=== PATIENT | female | born 1975 | race Caucasian/White ===

== ENCOUNTER 2016-11-03 22:20 | Observation (INO) | payer OTHER ==
[2016-11-03] MEDS ORDERED: SODIUM CHLORIDE 0.9% 1,000 ML IV STA (22:35)
[2016-11-03] MEDS ORDERED: ACETAMINOPHEN TAB 325 MG TAB PO STA (22:35)
[2016-11-03] MEDS ORDERED: METOCLOPRAMIDE 5 MG/ML 2 ML VIAL IVP STA (22:43)
[2016-11-03] MEDS ORDERED: diphenhydrAMINE 50 MG/ML 1 ML VIAL IVP STA (22:43)
[2016-11-03] MEDS ORDERED: HYDROmorphone 1 MG/ML 1 ML SYRINGE IVP STA (22:43)
[2016-11-03] MEDS ORDERED: SODIUM CHLORIDE 0.9% 1,000 ML IV ONE (22:44)
[2016-11-03] MEDS ORDERED: SODIUM CHLORIDE 0.9% 1,000 ML IV SCH (22:45)
[2016-11-03 23:14] LABS: Basophils % (A) 0 %; CH 30.9; CHCM 35.1; Eosinophils # (A) 0.1 k/uL (0-0.7); Eosinophils % (A) 2 %; HCT 45.6 % (34.0-46.0); HDW 2.72; HGB 15.9 gm/dL (11.4-16.0); Luc # (Auto) 0.18; Luc % (Auto) 2; Lymphocytes # (A) 2.2 k/uL (1.0-4.8); Lymphocytes % (A) 26 %; MCH 30.9 pg (25.0-35.0); MCHC 34.9 g/dL (31.0-37.0); MCV 88.3 fL (80.0-100.0); Mean Platelet Volume 6.9; Monocytes # (A) 0.5 k/uL (0-1.0); Monocytes % (A) 6 %; Neutrophils # (A) 5.4 k/uL (1.3-7.7); Neutrophils % (A) 64 %; RBC 5.16 m/uL (3.80-5.40); RDW 13.6 % (11.5-15.5); WBC 8.3 k/uL (3.8-10.6); WBC (Perox) 7.75
[2016-11-03 23:24] LABS: ALT 70 U/L (9-52); AST 32 U/L (14-36); Alkaline Phosphatase 108 U/L (38-126); Anion Gap 16 mmol/L; Blood Urea Nitrogen 16 mg/dL (7-17); Calcium 10.3 mg/dL (8.4-10.2); Carbon Dioxide 22 mmol/L (22-30); Chloride 105 mmol/L (98-107); Glucose 108 mg/dL (74-99); Non-African American GFR(MDRD) >60 (>60 ml/min/1.73 sqM); Potassium 4.2 mmol/L (3.5-5.1); Sodium 143 mmol/L (137-145); Total Bilirubin 0.3 mg/dL (0.2-1.3); Total Protein 8.6 g/dL (6.3-8.2)
[2016-11-04 00:44] LABS: Amorphous Sediment,Urine Occasional /hpf; Appearance,Urine Turbid (Clear); Bacteria,Urine Many /hpf; Bilirubin,Urine Negative (Negative); Glucose,Urine (UA) Negative (Negative); Ketones,Urine Negative (Negative); Leukocyte Esterase,Urine Negative (Negative); Nitrite,Urine Negative (Negative); Particle Count 22770; Protein,Urine Trace (Negative); Specific Gravity,Urine 1.016 (1.001-1.035); Squamous Epithelial Cell,Urine 2 /hpf (0-4); UA Billing (MACRO vs. MICRO) MICRO; Urobilinogen,Urine <2.0 mg/dL (<2.0)
--- NOTE | 2016-11-04 00:48 | XR ---
EXAM: XR Chest, 2 Views CLINICAL HISTORY: Reason: fever TECHNIQUE: Frontal and lateral views of the chest. COMPARISON: No relevant prior studies available. FINDINGS: Lungs: Unremarkable. No consolidation. Pleural space: Unremarkable. No pneumothorax. Heart: Unremarkable. No cardiomegaly. Mediastinum: Unremarkable. Bones/joints: Unremarkable. IMPRESSION: Normal chest x-rays.
[2016-11-04] MEDS ORDERED: ONDANSETRON 4 MG/2 ML VIAL IVP STA (00:58)
[2016-11-04] MEDS ORDERED: KETOROLAC 30 MG/ML 1 ML VIAL IVP STA (00:58)
[2016-11-04] MEDS ORDERED: HYDROmorphone 1 MG/ML 1 ML SYRINGE IVP STA (00:58)
[2016-11-04] MEDS ORDERED: ACETAMINOPHEN TAB 325 MG TAB PO PRN (01:25)
[2016-11-04] MEDS ORDERED: ONDANSETRON 4 MG/2 ML VIAL IVP PRN (01:25)
[2016-11-04] MEDS ORDERED: NALOXONE 0.4 MG/ML 1 ML VIAL IV PRN (01:25)
--- NOTE | 2016-11-04 01:59 | ED ---
General Adult HPI - General Chief complaint: Headache Stated complaint: migraine Time Seen by Provider: 11/03/16 22:35 Source: patient, RN notes reviewed Mode of arrival: ambulatory Limitations: no limitations - History of Present Illness Initial comments: 41-year-old female with history of migraine headache presents with a two-week history of occipital headache. Patient does report photophobia, no vision changes, no focal weakness. This is typical of her migraines. Patient was admitted to the hospital for several days with headache over the past week. She did return home, symptoms again presenting and are not relieved by outpatient therapy. She did have 3 episodes of nausea and vomiting prior to arrival, she has vomited twice in the emergency department. She also reports mild cough. Denies fever or chills, denies dysuria, denies diarrhea or abdominal pain. Denies chest pain or shortness of breath. - Related Data Home Medications Medication Instructions Recorded Confirmed Butalb/APAP/Caff 50-325-40Mg 1 tab PO Q4H PRN 11/03/16 11/03/16 [Fioricet 50-325-40] HYDROcodone/APAP 7.5-325MG [[place] 1 tab PO TID PRN 11/03/16 11/03/16 7.5-325] Ondansetron [Zofran ODT] 4 mg PO Q8HR PRN 11/03/16 11/03/16 Spironolactone 100 mg PO DAILY 11/03/16 11/03/16 Topiramate [Trokendi Xr] 50 mg PO QAM 11/03/16 11/03/16 amLODIPine [Norvasc] 2.5 mg PO DAILY 11/03/16 11/03/16 valACYclovir [Valtrex] 500 mg PO DAILY 11/03/16 11/03/16 Allergies Allergy/AdvReac Type Severity Reaction Status Date / Time No Known Allergies Allergy Verified 11/03/16 22:31 Review of Systems ROS Statement: Those systems with pertinent positive or pertinent negative responses have been documented in the HPI. ROS Other: All systems not noted in ROS Statement are negative. Past Medical History Past Medical History: No Reported History History of Any Multi-Drug Resistant Organisms: None Reported Past Surgical History: Appendectomy, Hysterectomy Additional Past Surgical History / Comment(s): knees. tummy tuck. ovarian cysts. Past Psychological History: No Psychological Hx Reported Smoking Status: Never smoker Past Alcohol Use History: None Reported Past Drug Use History: None Reported General Exam Limitations: no limitations General appearance: alert, in no apparent distress Head exam: Present: atraumatic, normocephalic Eye exam: Present: normal appearance, PERRL, EOMI ENT exam: Present: normal exam, mucous membranes moist Neck exam: Present: normal inspection, full ROM. Absent: tenderness, meningismus Respiratory exam: Present: normal lung sounds bilaterally, respiratory distress. Absent: wheezes Cardiovascular Exam: Present: normal rhythm, tachycardia GI/Abdominal exam: Present: soft. Absent: distended, tenderness, guarding Extremities exam: Present: normal inspection, full ROM, normal capillary refill. Absent: pedal edema Back exam: Present: normal inspection. Absent: CVA tenderness (R), CVA tenderness (L) Neurological exam: Present: alert, oriented X3, CN II-XII intact. Absent: motor sensory deficit Psychiatric exam: Present: normal affect, normal mood Skin exam: Present: warm, dry. Absent: rash, cyanosis, diaphoretic Course Vital Signs 11/03/16 11/03/16 11/03/16 22:27 23:22 23:53 Temperature 100.8 F H 100.3 F H 99.3 F Pulse Rate 140 H 138 H 108 H Respiratory 20 18 18 Rate Blood Pressure 159/96 157/93 136/88 O2 Sat by Pulse 99 99 99 Oximetry 11/04/16 01:36 Temperature 98.4 F Pulse Rate 110 H Respiratory 18 Rate Blood Pressure 141/80 O2 Sat by Pulse 99 Oximetry - Reevaluation(s) Reevaluation #1: 11/04/16 01:57 I reevaluation, the patient continues to have headache and nausea and vomiting Medical Decision Making - Medical Decision Making 41-year-old female presenting with a two-week history of headache. Headache is typical of her migraines patient was evaluated at outside hospital and admitted with these symptoms. She had tried taking her oral medication at home with minimal relief. Patient did report mild cough, chest x-ray was obtained negative for pneumonia. Laboratory studies reveal normal white blood cell count , electrolytes unremarkable, urinalysis shows no signs of infection. The patient is given multiple doses of antiemetics and pain medication the emergency department with relief. She will be admitted for symptomatically treatment of her headache and neurology evaluation. Diagnosis: Headache, intractable nausea vomiting - Lab Data Result diagrams: 11/03/16 23:05 11/03/16 23:05 Lab Results 11/03/16 11/03/16 11/03/16 Range/Units 23:05 23:05 23:05 WBC 8.3 (3.8-10.6) k/uL RBC 5.16 (3.80-5.40) m/uL Hgb 15.9 (11.4-16.0) gm/dL Hct 45.6 (34.0-46.0) % MCV 88.3 (80.0-100.0) fL MCH 30.9 (25.0-35.0) pg MCHC 34.9 (31.0-37.0) g/dL RDW 13.6 (11.5-15.5) % Plt Count 274 (150-450) k/uL Neutrophils % 64 % Lymphocytes % 26 % Monocytes % 6 % Eosinophils % 2 % Basophils % 0 % Neutrophils # 5.4 (1.3-7.7) k/uL Lymphocytes # 2.2 (1.0-4.8) k/uL Monocytes # 0.5 (0-1.0) k/uL Eosinophils # 0.1 (0-0.7) k/uL Basophils # 0.0 (0-0.2) k/uL Sodium 143 (137-145) mmol/L Potassium 4.2 (3.5-5.1) mmol/L Chloride 105 (98-107) mmol/L Carbon Dioxide 22 (22-30) mmol/L Anion Gap 16 mmol/L BUN 16 (7-17) mg/dL Creatinine 0.80 (0.52-1.04) mg/dL Est GFR (MDRD) Af Amer >60 (>60 ml/min/1.73 sqM) Est GFR (MDRD) Non-Af >60 (>60 ml/min/1.73 sqM) Glucose 108 H (74-99) mg/dL Plasma Lactic Acid Kaleb 1.1 (0.7-2.0) mmol/L Calcium 10.3 H (8.4-10.2) mg/dL Total Bilirubin 0.3 (0.2-1.3) mg/dL AST 32 (14-36) U/L ALT 70 H (9-52) U/L Alkaline Phosphatase 108 (38-126) U/L Total Protein 8.6 H (6.3-8.2) g/dL Albumin 5.2 H (3.5-5.0) g/dL TSH (0.465-4.680) mIU/L Urine Color Urine Appearance (Clear) Urine pH (5.0-8.0) Ur Specific [place] (1.001-1.035) Urine Protein (Negative) Urine Glucose (UA) (Negative) Urine Ketones (Negative) Urine Blood (Negative) Urine Nitrite (Negative) Urine Bilirubin (Negative) Urine Urobilinogen (<2.0) mg/dL Ur Leukocyte Esterase (Negative) Ur Squamous Epith Cells (0-4) /hpf Amorphous Sediment (None) /hpf Urine Bacteria (None) /hpf Urine Yeast (Budding) (None) /hpf Urine HCG, Qual (Not Detectd) 11/03/16 11/04/16 11/04/16 Range/Units 23:05 00:30 00:30 WBC (3.8-10.6) k/uL RBC (3.80-5.40) m/uL Hgb (11.4-16.0) gm/dL Hct (34.0-46.0) % MCV (80.0-100.0) fL MCH (25.0-35.0) pg MCHC (31.0-37.0) g/dL RDW (11.5-15.5) % Plt Count (150-450) k/uL Neutrophils % % Lymphocytes % % Monocytes % % Eosinophils % % Basophils % % Neutrophils # (1.3-7.7) k/uL Lymphocytes # (1.0-4.8) k/uL Monocytes # (0-1.0) k/uL Eosinophils # (0-0.7) k/uL Basophils # (0-0.2) k/uL Sodium (137-145) mmol/L Potassium (3.5-5.1) mmol/L Chloride (98-107) mmol/L Carbon Dioxide (22-30) mmol/L Anion Gap mmol/L BUN (7-17) mg/dL Creatinine (0.52-1.04) mg/dL Est GFR (MDRD) Af Amer (>60 ml/min/1.73 sqM) Est GFR (MDRD) Non-Af (>60 ml/min/1.73 sqM) Glucose (74-99) mg/dL Plasma Lactic Acid Kaleb (0.7-2.0) mmol/L Calcium (8.4-10.2) mg/dL Total Bilirubin (0.2-1.3) mg/dL AST (14-36) U/L ALT (9-52) U/L Alkaline Phosphatase (38-126) U/L Total Protein (6.3-8.2) g/dL Albumin (3.5-5.0) g/dL TSH 3.430 (0.465-4.680) mIU/L Urine Color Yellow Urine Appearance Turbid H (Clear) Urine pH 8.0 (5.0-8.0) Ur Specific [place] 1.016 (1.001-1.035) Urine Protein Trace H (Negative) Urine Glucose (UA) Negative (Negative) Urine Ketones Negative (Negative) Urine Blood Negative (Negative) Urine Nitrite Negative (Negative) Urine Bilirubin Negative (Negative) Urine Urobilinogen <2.0 (<2.0) mg/dL Ur Leukocyte Esterase Negative (Negative) Ur Squamous Epith Cells 2 (0-4) /hpf Amorphous Sediment Occasional H (None) /hpf Urine Bacteria Many H (None) /hpf Urine Yeast (Budding) Moderate H (None) /hpf Urine HCG, Qual Not Detected (Not Detectd) Disposition Clinical Impression: Headache, Intractable migraine, Intractable nausea and vomiting Disposition: ADMITTED IP TO THIS [facility] Condition: Stable Referrals: Ji Nance MD [Primary Care Provider] - 1-2 days Decision to Admit Reason: Admit from EC Decision Date: 11/04/16 Decision Time: 01:20
[2016-11-04 03:02] VITALS: BMI 30.9
[2016-11-04] MEDS: HYDROmorphone 1 MG/ML 1 ML SYRINGE IV PRN ×3 (05:15→18:06)
[2016-11-04] MEDS: valACYclovir 500 MG TAB PO SCH (13:33)
[2016-11-04] MEDS: SPIRONOLACTONE 25 MG TAB PO SCH (13:33)
[2016-11-04] MEDS: TOPIRAMATE 25 MG TAB PO SCH ×2 (13:34→21:02)
[2016-11-04] MEDS: amLODIPine 2.5 MG TAB PO SCH (13:34)
[2016-11-04] MEDS: SODIUM CHLORIDE 0.9% 1,000 ML IV SCH (13:37)
--- NOTE | 2016-11-04 14:24 | HP ---
CHIEF COMPLAINT: A 41-year-old white female with 2-week history of occipital headache, migraine headache, unrelenting, was admitted once now she is admitted again. She is unable to take care of her house, being home or walk or ambulate or keep the lights on. She has tried everything, Fioricet, Imitrex, failed everything. She is admitted to the hospital and awaiting for neurology consult. HOME MEDICINES: 1. Norvasc for blood pressure 2.5 daily. 2. Trokendi XR 50 mg q.a.m. 3. Spironolactone 100 daily. 4. Zofran 4 mg q.8 hours p.r.n. 5. [place] 7.5/325 t.i.d. 6. Fioricet 1 q.4 hours p.r.n. ALLERGIES: No known drug allergies. REVIEW OF SYSTEMS: Fourteen point review of systems negative. PAST MEDICAL HISTORY: Obese, hypertension, ovarian cyst, polycystic ovarian disease. PHYSICAL EXAM: Her eyes are half closed. The lights are off. She is unable to focus. CARDIOVASCULAR: S1, S2. LUNGS: Transmitted upper airway sounds. HEMATOLOGY: Negative Homans. PSYCH: Fair mood affect. NEUROLOGIC: Alert and oriented x3. OPHTHALMOLOGIC: Pupils equal, round and reactive to light and accommodation. MUSCULOSKELETAL: Tenderness to palpation cervical spinal muscles. Temperature is T-max 100.3, T now is 99. Respiratory rate 18 to 20. Blood pressure is 130s to 150s over 80s to 90s. Pulse rate is 140s coming in, now it is 110. She has nausea and vomiting. Chest x-ray is negative for pneumonia. Normal white count, electrolytes. ASSESSMENT: 1. Occipital neuritis, acute migraine. 2. Normal lactic acid. 3. Normal calcium. Await Neurology for possible trigger point injections for headache, ( ) migraines and nausea and vomiting, possible viral syndrome maybe. Please see further orders on chart. Await Neurology consult. LANDYD
--- NOTE | 2016-11-04 19:09 | CT ---
EXAMINATION TYPE: CT brain wo con DATE OF EXAM: 11/04/2016 COMPARISON: 05/18/2011 INDICATION: Patient complains of headache. DLP: 891.2 mGycm, Automated exposure control for dose reduction was used. CONTRAST: None CT of the brain is performed utilizing 3 mm thick sections through the posterior fossa and 3 mm thick sections through the remaining calvarium. Study is performed within 24 hours of arrival to the hosp [facility]. No abnormal hyperdensity is present to suggest an acute intracranial hemorrhage. No mass lesion is evident. No acute infarcts are evident. Ventricles and sulci are appropriate for the patient age. Paranasal sinuses and mastoid air cells within the [id number] are clear. IMPRESSIONS: 1. Normal CT Brain
[2016-11-04] MEDS: PROMETHAZINE 25 MG TAB PO PRN (20:13)
--- NOTE | 2016-11-04 20:19 | P.CNNES ---
History of Present Illness Consult date: 11/04/16 Reason for Consult: Patient admitted with recurrent occipital headache pain. History of Present Illness: This patient is a 41-year-old female who is been admitted to hospital with intractable headaches. Patient states she is been symptomatic with headache pain since 10/17/2016. She has a history of migraine headaches for which she has been treated. Apparently she has had recurrent and severe headache pain despite taking her regular headache medications. She was admitted to [facility] about 2 weeks ago with similar complaints. Patient does have various medications that she has tried for her headaches. All of these have failed and she was admitted to the hospital. She was given some Dilaudid for pain management. She continues to have significant symptoms of nausea and vomiting. She has been started on Zofran. She was sent for a stat computed tomography scan of the brain today which was reviewed and came back normal. She does have a family history of cerebral aneurysm in her mother and grandmother. We have recommended that she should have a MRA of the [place] to rule out any possibility of cerebral aneurysm. She does complain and have history of occipital neuritis in the past. This does seem to definitely be flared up with her current headache symptoms. Due to the severity and recurrent nature of her headache she is now admitted and neurology has been consulted for further evaluation and recommendations. Review of Systems Constitutional: Denies chills, Denies fever Eyes: denies blurred vision, denies pain Ears, nose, mouth and throat: Denies headache, Denies sore throat Cardiovascular: Denies chest pain, Denies shortness of breath Respiratory: Denies cough Gastrointestinal: Denies abdominal pain, Denies diarrhea, Denies nausea, Denies vomiting Genitourinary: Denies dysuria, Denies hematuria Musculoskeletal: Denies myalgias Integumentary: Denies pruritus, Denies rash Neurological: Reports head injury, Reports headaches, Reports migraines, Reports paresthesias, Reports tingling, Denies numbness, Denies weakness Psychiatric: Denies anxiety, Denies depression Endocrine: Denies fatigue, Denies weight change Past Medical History Past Medical History: No Reported History Additional Past Medical History / Comment(s): migraines History of Any Multi-Drug Resistant Organisms: None Reported Past Surgical History: Appendectomy, Hysterectomy Additional Past Surgical History / Comment(s): knees. tummy tuck. ovarian cysts. Past Anesthesia/Blood Transfusion Reactions: No Reported Reaction Past Psychological History: Anxiety, Depression Smoking Status: Never smoker Past Alcohol Use History: None Reported Past Drug Use History: None Reported - Past Family History Mother Family Medical History: Cancer Father Family Medical History: Hypertension Medications and Allergies Home Medications Medication Instructions Recorded Confirmed Type Butalb/APAP/Caff 50-325-40Mg 1 tab PO Q4H PRN 11/03/16 11/03/16 History [Fioricet 50-325-40] HYDROcodone/APAP 7.5-325MG [[place] 1 tab PO TID PRN 11/03/16 11/03/16 History 7.5-325] Ondansetron [Zofran ODT] 4 mg PO Q8HR PRN 11/03/16 11/03/16 History Spironolactone 100 mg PO DAILY 11/03/16 11/04/16 History Topiramate [Trokendi Xr] 50 mg PO QAM 11/03/16 11/03/16 History amLODIPine [Norvasc] 2.5 mg PO DAILY 11/03/16 11/04/16 History valACYclovir [Valtrex] 500 mg PO DAILY 11/03/16 11/03/16 History Allergies Allergy/AdvReac Type Severity Reaction Status Date / Time No Known Allergies Allergy Verified 11/03/16 22:31 Physical Examination - Vital Signs Vital Signs: Vital Signs Temp Pulse Pulse Resp BP BP Pulse Ox 11/04/16 16:26 98 F 77 20 114/72 100 11/04/16 11:56 97.3 F L 103 H 18 136/81 99 11/04/16 07:00 97.4 F L 106 H 21 131/79 97 11/04/16 03:14 103 H 11/04/16 02:43 98.4 F 101 H 16 134/90 96 11/04/16 02:27 98.9 F 114 H 18 160/78 99 11/04/16 01:36 98.4 F 110 H 18 141/80 99 11/03/16 23:53 99.3 F 108 H 18 136/88 99 11/03/16 23:22 100.3 F H 138 H 18 157/93 99 11/03/16 22:27 100.8 F H 140 H 20 159/96 99 Intake and Output 11/04/16 11/04/16 11/04/16 06:59 14:59 22:59 Intake Total 60 Output Total 100 20 50 Balance -100 40 -50 Intake: Oral 60 Output: Urine 100 Emesis 20 50 Other: # Voids 1 Weight 79.379 kg - Constitutional General appearance: average body habitus, cooperative - EENT EENT: PERRL, mucous membranes moist - Respiratory Respiratory: lungs clear, normal breath sounds - Cardiovascular Cardiovascular: regular rate, normal S1, normal S2 Extremities: no peripheral edema bilaterally - Gastrointestinal Gastrointestinal: normoactive bowel sounds - Integumentary Integumentary: normal - Neurologic Detailed sensory examination: intact Reflex and gait examination: intact Reflexes: 1+: ankle, bicep, knee, tricep - Musculoskeletal Musculoskeletal: no pain - Psychiatric Psychiatric: mood/affect appropriate, cooperative Results - Laboratory Findings CBC and BMP: 11/03/16 23:05 11/03/16 23:05 Abnormal Lab Findings: Abnormal Labs 11/03/16 11/04/16 23:05 00:30 Glucose 108 H Calcium 10.3 H ALT 70 H Total Protein 8.6 H Albumin 5.2 H Urine Appearance Turbid H Urine Protein Trace H Amorphous Sediment Occasional H Urine Bacteria Many H Urine Yeast (Budding) Moderate H Assessment and Plan (1) Occipital neuritis Status: Acute Code(s): M54.81 - OCCIPITAL NEURALGIA (2) Family history of aneurysm of blood vessel of brain Status: Acute Code(s): Z82.49 - FAMILY HX OF ISCHEM HEART DIS AND OTH DIS OF [facility] (3) Intractable migraine Status: Acute Code(s): G43.919 - MIGRAINE, UNSP, INTRACTABLE, WITHOUT STATUS MIGRAINOSUS (4) Migraine headache Status: Acute Code(s): G43.909 - MIGRAINE, UNSP, NOT INTRACTABLE, WITHOUT STATUS MIGRAINOSUS Plan: This patient is a 41-year-old female was admitted to hospital with severe occipital headache pain. She was sent for a stat computed tomography scan of the brain which was completed today and came back normal with no evidence of acute stroke or hemorrhage. She has evidence on neurological examination bilateral occipital neuritis. We've recommended she undergo a occipital nerve block procedure through anesthesia. We would recommend a MRI/MRA of the brain to be done is there is a very strong family history of cerebral aneurysm. Her mother has cerebral aneurysm history. Patient does have significant occipital tenderness to palpation. We have recommended bilateral occipital nerve block procedure. She may continue with her other headache medications. We will await the results of her MRI and MRA of the brain and we'll give further recommendations at that time. Her overall prognosis at this time remains guarded. Time with Patient: Greater than 30
[2016-11-05] MEDS: SODIUM CHLORIDE 0.9% 1,000 ML IV SCH ×3 (02:22→23:15)
[2016-11-05 07:09] LABS: Basophils # (A) 0.1 k/uL (0-0.2); Basophils % (A) 1 %; CH 30.9; CHCM 33.6; Eosinophils # (A) 0.2 k/uL (0-0.7); Eosinophils % (A) 2 %; HCT 39.6 % (34.0-46.0); HDW 2.69; Luc # (Auto) 0.16; Luc % (Auto) 3; Lymphocytes # (A) 1.8 k/uL (1.0-4.8); Lymphocytes % (A) 29 %; MCH 30.2 pg (25.0-35.0); MCHC 32.7 g/dL (31.0-37.0); MCV 92.5 fL (80.0-100.0); Mean Platelet Volume 7.5; Monocytes # (A) 0.4 k/uL (0-1.0); Monocytes % (A) 7 %; Neutrophils # (A) 3.7 k/uL (1.3-7.7); Neutrophils % (A) 59 %; RBC 4.28 m/uL (3.80-5.40); RDW 14.1 % (11.5-15.5); WBC 6.3 k/uL (3.8-10.6); WBC (Perox) 6.43
[2016-11-05 07:19] LABS: HGB 12.9 gm/dL (11.4-16.0)
[2016-11-05 07:24] LABS: ALT 55 U/L (9-52); AST 22 U/L (14-36); Alkaline Phosphatase 80 U/L (38-126); Anion Gap 8 mmol/L; Blood Urea Nitrogen 8 mg/dL (7-17); Calcium 8.8 mg/dL (8.4-10.2); Carbon Dioxide 20 mmol/L (22-30); Chloride 112 mmol/L (98-107); Glucose 85 mg/dL (74-99); Non-African American GFR(MDRD) >60 (>60 ml/min/1.73 sqM); Potassium 3.9 mmol/L (3.5-5.1); Sodium 140 mmol/L (137-145); Total Bilirubin 0.4 mg/dL (0.2-1.3); Total Protein 6.5 g/dL (6.3-8.2)
[2016-11-05] MEDS ORDERED: IV FLUID CONTINUATION 1,000 ML IV ONE (08:35)
[2016-11-05] MEDS ORDERED: fentaNYL (PF) 50 MCG/ML 2 ML AMP IV ONE (08:39)
[2016-11-05] MEDS ORDERED: MIDAZOLAM 2 MG/2 ML VIAL IV ONE (08:39)
[2016-11-05] MEDS ORDERED: TRIAMCINOLONE ACETONIDE 40 MG/ML 1 ML VIAL INTRAARTIC ONE ×2 (08:40)
[2016-11-05] MEDS ORDERED: BUPIVACAINE (PF) 0.5% 30 ML VIAL MISCELLANE ONE (08:40)
[2016-11-05] MEDS: amLODIPine 2.5 MG TAB PO SCH (10:04)
[2016-11-05] MEDS: TOPIRAMATE 25 MG TAB PO SCH ×2 (10:04→21:03)
[2016-11-05] MEDS: SPIRONOLACTONE 25 MG TAB PO SCH (10:05)
[2016-11-05] MEDS: valACYclovir 500 MG TAB PO SCH (10:05)
[2016-11-05] MEDS: PROMETHAZINE 25 MG TAB PO PRN ×2 (10:12→19:35)
--- NOTE | 2016-11-05 10:45 | P.PCN ---
Date of Procedure: 11/05/16 Preoperative Diagnosis: Postoperative Diagnosis: Procedure(s) Performed: Pre-operative diagnosis: 1- Bilateral occipital neuralgea Post Operative Diagnosis 1- Bilateral occipital neuralgea Procedure: 1- Bilateral occipital nerve block ANESTHESIA: Conscious sedation with Versed.2 mg and fentanyl 100 micrograms EBL: Minimal PROCEDURE INDICATION: The patient with neck pain and headache secondary to occipital neuralgea unresponsive to conservative treatments. PROCEDURE DESCRIPTION / TECHNIQUE: The patient was seen and identified in the preoperative area. Risks, benefits, complications, and alternatives were discussed with the patient, the patient agreed to proceed with the procedure and signed the consent.. Vital signs remained stable throughout the procedure. Patient was taken to the OR and time out was completed. The patient was placed in the sitting position on the procedure table. A pillow was placed under the patients chest to increase the cervical interlaminar space. The cervical area and right occiptial area were prepped with alcohol swab. Critical pause was taken. Vital signs were closely monitored during the procedure. Conscious sedation was used during the procedure to decrease patients anxiety. The right occiptal ridge was palpated and was then accessed with a 25 G needle. Then after negative aspiration, 6 ml of the block solution containing 6 ml of PF Buvicaine 0.5% and Kenalog 40 mg was injected. Needle was withdrawn intact. Then the same procedure was repeated on the left side and related the left occipital nerve block, after negative aspiration 6 mL of the block solution containing ropivacaine 0.5% and 40 mg of Kenalog injected after negative aspiration Patient tolerated procedure well. No acute complications. Implants: Indications for Procedure: Operative Findings: Description of Procedure:
[2016-11-05] MEDS: HYDROcodone/APAP 7.5-325MG 1 EACH TAB PO PRN ×3 (11:40→23:16)
[2016-11-05] MEDS: BUTALB/APAP/CAFF 50-325-40MG TAB PO PRN (21:29)
--- NOTE | 2016-11-06 05:50 | PN ---
SUBJECTIVE: A 41-year-old white female admitted with bilateral occipital neuralgia. Underwent surgery today for a nerve block. Brain CT was negative. Vital signs stable, afebrile. CARDIOVASCULAR: S1, S2. LUNGS: Clear. GI: Soft. HEMATOLOGY: Negative Homans. ASSESSMENT: 1. Occipital neuralgia. 2. Unrelenting migraine. PLAN: Patient will be discharged home in the next 24 to 48 hours to follow up as an outpatient. She is greatly improved from physical standpoint. JANUARY
[2016-11-06] MEDS: valACYclovir 500 MG TAB PO SCH (08:24)
[2016-11-06] MEDS: TOPIRAMATE 25 MG TAB PO SCH ×2 (08:24→21:37)
[2016-11-06] MEDS: amLODIPine 2.5 MG TAB PO SCH (08:25)
[2016-11-06] MEDS: SPIRONOLACTONE 25 MG TAB PO SCH (08:25)
[2016-11-06] MEDS: HYDROcodone/APAP 7.5-325MG 1 EACH TAB PO PRN ×2 (08:28→16:02)
[2016-11-06] MEDS: PROMETHAZINE 25 MG TAB PO PRN (08:50)
--- NOTE | 2016-11-06 10:12 | MR ---
EXAMINATION TYPE: MR angio head wo con DATE OF EXAM: 11/06/2016 COMPARISON: MR brain same date, CT brain 11/04/2016 HISTORY: Headaches and family history of cerebral aneurysm TECHNIQUE: Time of flight images focusing on the [place] were performed without contrast. FINDINGS: The vertebral arteries are patent, the internal carotid arteries are patent. 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 A1 segment of the internal carotid artery on the right is atrophic. IMPRESSION: No significant abnormality is evident
--- NOTE | 2016-11-06 10:16 | MR ---
MR brain without contrast HISTORY: Headaches, family history aneurysm Multiplanar multisequence imaging of the brain and correlated to CT brain 11/04/2016 There is no restricted diffusion to suggest subacute ischemia. There are normal vascular flow voids. No hemorrhage or hydrocephalus. Brain signal is maintained. The orbits show symmetric appearance. Cer ebellopontine angles, corpus callosum, pituitary, cervical medullary junction are normal. IMPRESSION: No significant abnormality.
[2016-11-06] MEDS: BUTALB/APAP/CAFF 50-325-40MG TAB PO PRN ×3 (11:20→21:35)
[2016-11-06] MEDS: CYCLOBENZAPRINE 10 MG TAB PO SCH (21:18)
[2016-11-07] MEDS: HYDROcodone/APAP 7.5-325MG 1 EACH TAB PO PRN ×2 (00:27→07:58)
[2016-11-07] MEDS: SODIUM CHLORIDE 0.9% 1,000 ML IV SCH (02:41)
[2016-11-07 08:19] VITALS: PULSE 79; RESP 19; TEMP 98.1
[2016-11-07] MEDS: amLODIPine 2.5 MG TAB PO SCH (08:24)
[2016-11-07] MEDS: SPIRONOLACTONE 25 MG TAB PO SCH (08:24)
[2016-11-07] MEDS: CYCLOBENZAPRINE 10 MG TAB PO SCH (08:24)
[2016-11-07] MEDS: TOPIRAMATE 25 MG TAB PO SCH (08:25)
[2016-11-07] MEDS: valACYclovir 500 MG TAB PO SCH (08:25)
--- NOTE | 2016-11-07 08:53 | P.DS ---
Providers Date of admission: 11/04/16 01:25 Expected date of discharge: 11/07/16 Attending physician: Ji Nance Consults: 11/04/16 01:26 Consult Physician Urgent Consulting Provider: Forrest Contreras Consult Reason/Comments: Headache Do you want consulting provider notified?: Yes, Notify in am 11/05/16 07:00 Consult Anesthesia Routine Consulting Provider: Anesthesia,Services Consult Reason/Comments: bilateral occipital nerve blocks for occipital neuritis. Primary care physician: Ji Nance - Discharge Diagnosis(es) (1) Intractable migraine Present on admission, chronic, stable at this time Status: Chronic (2) Intractable nausea and vomiting Due to migraines, resolved at time of discharge Status: Resolved Hospital Course: This is a 41-year-old female who was admitted to the hospital 2016 with a two-week history of migraines and nausea and vomiting. Patient has history of migraine headaches and has tried multiple treatments including Fioricet, and Imitrex. Patient was unable to take care of her house, ambulate or keep any light on due to his making her headache worse. Patient was admitted and neurology was consulted. CT of the brain was completed and was unremarkable. MRI/MRA of the brain was completed on 11/04/2016 and no significant abnormality was evident. Patient underwent a occipital nerve block on 11/05/2016 by the anesthesia department and tolerated well without complications. Patient is feeling well and without complaints this morning. Vital signs have been stable. Laboratory data from 11/05/[address] Nance discussed discharge with patient and patient states she feels ready to be discharged this morning. Patient Condition at Discharge: Stable Plan - Discharge Summary New Discharge Prescriptions: New Cyclobenzaprine [Flexeril] 10 mg PO BID #30 tab Continue valACYclovir [Valtrex] 500 mg PO DAILY Spironolactone 100 mg PO DAILY Topiramate [Trokendi Xr] 50 mg PO QAM Ondansetron [Zofran ODT] 4 mg PO Q8HR PRN PRN Reason: Nausea And Vomiting HYDROcodone/APAP 7.5-325MG [[place] 7.5-325] 1 tab PO TID PRN PRN Reason: Pain amLODIPine [Norvasc] 2.5 mg PO DAILY Butalb/APAP/Caff 50-325-40Mg [Fioricet 50-325-40] 1 tab PO Q4H PRN PRN Reason: Migraine Headache Discharge Medication List Butalb/APAP/Caff 50-325-40Mg [Fioricet 50-325-40] 1 tab PO Q4H PRN 11/03/16 [ History] HYDROcodone/APAP 7.5-325MG [[place] 7.5-325] 1 tab PO TID PRN 11/03/16 [History] Ondansetron [Zofran ODT] 4 mg PO Q8HR PRN 11/03/16 [History] Spironolactone 100 mg PO DAILY 11/03/16 [History] Topiramate [Trokendi Xr] 50 mg PO QAM 11/03/16 [History] amLODIPine [Norvasc] 2.5 mg PO DAILY 11/03/16 [History] valACYclovir [Valtrex] 500 mg PO DAILY 11/03/16 [History] Cyclobenzaprine [Flexeril] 10 mg PO BID #30 tab 11/07/16 [Rx] Follow up Appointment(s)/Referral(s): Ji Nance MD [Primary Care Provider] - 1-2 days Forrest Contreras MD [STAFF PHYSICIAN] - 1 Week Discharge Disposition: HOME SELF-CARE
[2016-11-07 09:09] VITALS: BP 138/88
--- NOTE | 2016-11-07 18:52 | PN ---
SUBJECTIVE: This is a white female admitted with migraine occipital neuralgia, occipital neuritis, status post nerve blocks. She has tenderness to palpation around her cervical spinal muscles. CARDIOVASCULAR: S1, S2. LUNGS: Clear. GI: Soft. ( ) stable. ASSESSMENT: 1. Occipital neuralgia. 2. Acute cephalgia. Flexeril 5 mg b.i.d. will be given. ( ) in the next 24 to 48 hours. Possible discharge. MTDD
== END 2016-11-07 09:07 | disposition home or self-care (01) ==
LOC: EC 22:20 → INTOOBSV 11-04 01:25 → 6PED 11-04 01:25
PROVIDERS: ADMIT Family Medicine; ATTEND Family Medicine
DX: M54.81 Occipital neuralgia (principal); I10 Essential (primary) hypertension; G43.919 Migraine, unspecified, intractable, without status migrainosus; E28.2 Polycystic ovarian syndrome; E66.9 Obesity, unspecified; F32.9 Major depressive disorder, single episode, unspecified; F41.9 Anxiety disorder, unspecified; Z79.899 Other long term (current) drug therapy; Z82.49 Family history of ischemic heart disease and other diseases of the circulatory system
CPT/HCPCS: 96376 ×2; 96361; 96374; 96375 ×2; 99284; 36415; 64405; 80053 ×2; 84443; 83605; 85025 ×2; 81001; 81025; 87040; 87086; 71020; 70450; 70544; 70551; G0378 ×4; J2250; J1200; J3301; J2765; J2405; J3010; J1885; J1170 ×2

== ENCOUNTER → 2017-01-24 | Day surgery (SDC) | payer OTHER ==
[2017-01-02 15:31] VITALS: BMI 29.2
[~2017-01-24] MED LIST: IV FLUID CONTINUATION 1,000 ML IV ONE; LACTATED RINGERS 1,000 ML IV ONE; LIDOCAINE 1% 20 ML VIAL (10MG/ML) FOR IV START INTRADERMA ONE
[2017-01-24 10:24] VITALS: RESP 16; TEMP 97.4
--- NOTE | 2017-01-24 11:20 | P.PCN ---
Date of Procedure: 01/24/17 Procedure(s) Performed: Pre-operative diagnosis: 1- Bilateral occipital neuralgea Post Operative Diagnosis 1- Bilateral occipital neuralgea Procedure: 1- Bilateral occipital nerve block ANESTHESIA: Conscious sedation with Versed. 2 mg and fentanyl 50 micrograms EBL: Minimal PROCEDURE INDICATION: The patient with neck pain and headache secondary to occipital neuralgea unresponsive to conservative treatments. PROCEDURE DESCRIPTION / TECHNIQUE: The patient was seen and identified in the preoperative area. Risks, benefits, complications, and alternatives were discussed with the patient, the patient agreed to proceed with the procedure and signed the consent. IV was started. Vital signs remained stable throughout the procedure. Patient was taken to the OR and time out was completed. The patient was placed in the pron (sitting ) position on the procedure table. A pillow was placed under the patients chest to increase the cervical interlaminar space. The cervical area and right occiptial area were prepped with alcohol swab. Critical pause was taken. Vital signs were closely monitored during the procedure. Conscious sedation was used during the procedure to decrease patients anxiety. The right occiptal ridge was palpated and was then accessed with a 25 G needle. Then after negative aspiration, 6 ml of the block solution containing 6 ml of PF Buvicaine 0.75% and Kenalog 40 mg was injected. Needle was withdrawn intact. Then the same procedure was repeated on the left side and related the left occipital nerve block, after negative aspiration 6 mL of the block solution containing ropivacaine 0.75% and 40 mg of Kenalog injected after negative aspiration Patient tolerated procedure well. No acute complications.
[2017-01-24 12:06] VITALS: BP 148/90; PULSE 84
== END ==
LOC: ORPAIN 09:50
PROVIDERS: ATTEND Specialist
DX: M54.81 Occipital neuralgia (principal)
CPT/HCPCS: 64405; J2250; J3301; J3010; 99152

== ENCOUNTER → 2017-03-31 | Outpatient (CLI) | payer OTHER ==
--- NOTE | 2017-03-31 14:54 | MR ---
EXAMINATION TYPE: MR cervical spine wo con DATE OF EXAM: 03/31/2017 COMPARISON: NONE HISTORY: Headaches neck pain, previous MRI on PACS TECHNIQUE: Multiplanar, multisequence images of the cervical spine were acquired. C2-C3: No evidence for degenerative disc disease. No disc bulge/herniation or protrusion. No Canal stenosis. Foramina are patent bilaterally. C3-C4: No evidence for degenerative disc disease. No disc bulge/herniation or protrusion. No Canal stenosis. Foramina are patent bilaterally. C4-C5: No evidence for degenerative disc disease. No disc bulge/herniation or protrusion. No Canal stenosis. Some mild right-sided foraminal encroachment present due to lateral extension of endplate d isc complex.. C5-C6: No evidence for degenerative disc disease. Mild posterior disc bulge causes only slight anteri or mass effect on the thecal sac.. No Canal stenosis. Some mild extension of endplate disc complex c auses minimal left-sided foraminal encroachment.. C6-C7: No evidence for degenerative disc disease. Mild posterior broad-based disc bulge causes only s light anterior mass effect on the thecal sac. No Canal stenosis. Some minimal lateral extension of e ndplate disc complex causes slight right-sided foraminal encroachment.. C7-T1: No evidence for degenerative disc disease. No disc bulge/herniation or protrusion. No Canal stenosis. Foramina are patent bilaterally. Cervical segments are intact. There is normal alignment. Cervical spinal cord is of normal signal. Craniovertebral junction relationships are within normal limits. Cervical vertebral bodies show pre served height. Mild spondylosis minimal endplate marrow signal change noted. Thoracic scoliosis is guzman spected. IMPRESSION: Suspect a thoracic scoliosis. Mild foraminal encroachment, degenerative disc changes described.
== END | disposition home or self-care (01) ==
LOC: RADMRIMAIN 14:07
PROVIDERS: ATTEND Anesthesiology
DX: M50.222 Other cervical disc displacement at C5-C6 level (principal); M47.812 Spondylosis without myelopathy or radiculopathy, cervical region
CPT/HCPCS: 72141

== ENCOUNTER → 2017-04-05 | Outpatient (CLI) | payer OTHER ==
--- NOTE | 2017-04-05 14:31 | P.PN ---
Subjective Progress Note Date: 04/05/17 This is follow-up visit for this patient with a history of severe and chronic ache A" occipital neuralgia and cervicogenic headache, we have done occipital nerve block bilaterally 2 She had no benefit from the occipital nerve block, she continued to have severe and chronic headache increased with any neck movement and any activity, with occasional exacerbation ,Patients currently on [place] 7.5/325 every 6 hours, Flexeril 10 mg 3 times a day, Darvocet every 4 hours when necessary Patient denies any side effects of the medication, denies excessive drowsiness or sleepiness, denies suicidal ideation, and reports that the current pain medication is NOT helping to control her headache Patient denies any motor or sensory deficit , patient denies any fever or night sweats, denies any change in the bowel movements or urination Physical Examinations : 1-Constitutiona : Cooperative , not in acute distress . 2-HEENT : nech ; supple , no Lymphadenopathy , no Thyromegaly , normal thyroid size . eyes : no ptosis , no icterus, no photophobia . ENT : normal of hearing , normal oropharynx , no Thrush . 3- Respiratory : Chest clear to auscultations Bilaterally , no wheezing , no Rhonchi . 4- Cardiovascular : regular rate and rhythem , S1 , S2 , no S3 , no S4. 5- Gastrointestinal : abdomen soft no tenderness , bowel sounds positive all four quadrents , no organomegally . 6- Genitourinary : Defferred . 7- neurologic : Cranial nerve II to XII intact , no focal neurological deffecit . 8-psychatric : alert , oriented X 3 , appropriate affect , intact judgment and insight . 9-Lymphatic : no Lymphadenopathy . 10- musculoskeltal : exams of the cervical spine = motor strength normal bilateral upper extremities facet loading test cervical area positive. Tenderness over the occipital nerves bilaterally exams of the [place] spine = motor strength lower extremities ,thigh and legs .5/5 Assessment and plan = Occipital neuralgia , cervicogenic headache Patient had no benefit from occipital nerve block x2 . MRI of the cervical spine reviewed and it showed that ,she had, no herniated disc ,and no foramina stenosis Patient should continue her pain medication [place] 7.5/325 every 6 hours and should continue Fioricet every 4 hours when necessary, she is getting prescription from primary care Prescription for Lyrica 25 mg 3 times a day given a prescription for Motrin 800 mg every 8 hours when necessary for headache also given Patient will be scheduled diagnostic medial branch block cervical C2 3/ C3 4/30 occipital nerve block bilaterally , and if she had benefits from stand still then we will do a radiofrequency ablation Objective - Vital Signs Vital signs: Intake & Output 04/04/17 04/05/17 04/05/17 18:59 06:59 18:59 Weight 74.843 kg
== END | disposition home or self-care (01) ==
LOC: PNWHC3 13:33
PROVIDERS: ATTEND Specialist
DX: M54.81 Occipital neuralgia (principal); Z79.899 Other long term (current) drug therapy; Z79.1 Long term (current) use of non-steroidal anti-inflammatories (NSAID)
CPT/HCPCS: 99211

== ENCOUNTER 2017-05-31 07:29 | Day surgery (SDC) | payer OTHER ==
[2017-04-30 13:21] VITALS: BMI 28.7
[2017-05-31 08:15] VITALS: BP 139/83; PULSE 91; RESP 16; TEMP 98
[2017-05-31] MEDS ORDERED: LACTATED RINGERS 1,000 ML IV ONE (08:25)
[2017-05-31] MEDS ORDERED: LIDOCAINE 1% 20 ML VIAL (10MG/ML) FOR IV START INTRADERMA ONE (08:26)
--- NOTE | 2017-05-31 09:02 | P.PN ---
Progress Note - Text Progress Note Date: 05/31/17 Patient incorrectly scheduled for occipital nerve block (which previously gave her no relief) instead of cervical medial branch block C2-C3, C3-C4, and third occipital NB. Insurance will require prior authorization, so procedure will be postponed until approved. Patient verbalized understanding.
== END 2017-05-31 09:01 | disposition home or self-care (01) ==
LOC: ORPAIN 07:29
PROVIDERS: ATTEND Anesthesiology
DX: M54.81 Occipital neuralgia (principal); Z53.9 Procedure and treatment not carried out, unspecified reason

== ENCOUNTER 2017-07-02 06:30 | Day surgery (SDC) | payer OTHER ==
[2017-06-26 09:11] VITALS: BMI 28.7
[~2017-07-02 06:30] MED LIST changes: -IV FLUID CONTINUATION 1,000 ML IV ONE; -LACTATED RINGERS 1,000 ML IV ONE; +LACTATED RINGERS 1,000 ML IV SCH; -LIDOCAINE 1% 20 ML VIAL (10MG/ML) FOR IV START INTRADERMA ONE
[2017-07-02] MEDS ORDERED: LIDOCAINE 1% 20 ML VIAL (10MG/ML) FOR IV START INTRADERMA ONE (07:26)
[2017-07-02 07:32] VITALS: RESP 16; TEMP 98.1
[2017-07-02] MEDS ORDERED: IV FLUID CONTINUATION 1,000 ML IV ONE (08:15)
[2017-07-02 08:38] VITALS: BP 111/75; PULSE 78
--- NOTE | 2017-07-02 08:42 | FL ---
EXAMINATION TYPE: FL guided pain mgmt statistic DATE OF EXAM: 07/02/2017 FLUOROSCOPY Fluoroscopy time of 8 seconds was used during bilateral cervical facet injections. 6 image/s documen t/s the procedure.
--- NOTE | 2017-07-02 10:58 | P.PCN ---
Date of Procedure: 07/02/17 Surgeon: Adriel Stevenson Pathology: none sent Condition: stable Disposition: PACU Description of Procedure: PREOPERATIVE DIAGNOSIS: Cervical spondylosis without myelopathy, cervicogenic headache. POSTOPERATIVE DIAGNOSIS: same PROCEDURES: Diagnostic bilateral C2-C3, C3-C4 medial branch and third occipital nerve block with fluoroscopic guidance ANESTHESIA: Local with 1% lidocaine; conscious sedation EBL: Minimal PROCEDURE INDICATION: This is a patient with neck pain and headaches secondary to cervical arthropathy unresponsive to more conservative treatments. PROCEDURE DESCRIPTION / TECHNIQUE: The patient was seen and identified in the preoperative area. Risks, benefits, complications, and alternatives were discussed with the patient (including but not limited to incomplete pain relief , bleeding, infection, nerve damage, and allergies to medications), the patient agreed to proceed with the procedure and signed the consent after all questions were answered. IV was started. Vital signs remained stable throughout the procedure. Patient was taken to the OR and time out was completed. The patient was placed in the prone position on the procedure table. A pillow was placed under the patients chest to increase the cervical interlaminar space. The cervical area was prepped and draped in the usual sterile fashion. Critical pause was taken. Vital signs were closely monitored during the procedure. Conscious sedation was used during the procedure to decrease patients anxiety. Using cross-table lateral fluoroscopy, the centroid of the trapezoid of right C2 , was identified, marked, and localized with 1% lidocaine. Subsequently, a 22- gauge 3.5-inch spinal needle was advanced guided by fluoroscopy to the centroid of the trapezoid of C2. Needle tip position was confirmed at the centroid of the trapezoids of C2 with anteroposterior fluoroscopy. Subsequently, 1 ml of a combination of 10 mg Decadron and 5 ml of preservative-free Bupivacaine 0.5% was injected after negative aspiration for blood and CSF. Needle was then removed intact; the same procedure was repeated at the right C3 MB and C2-C3 facet joint levels and then at the corresponding three levels on the left side. COMPLICATIONS: No acute complications. COMMENTS: DISPOSITION / PLANS: The patient was placed in a supine position and transferred to the recovery area in a stable condition for observation and was discharged from the recovery room after meeting discharge criteria. Home discharge instructions given to the patient by the staff. The patient was reexamined prior to discharge and there were no issues. The patient will schedule a repeat CMBB/TON block in 3-4 weeks.
== END 2017-07-02 08:46 | disposition home or self-care (01) ==
LOC: ORPAIN 06:30
PROVIDERS: ATTEND Anesthesiology
DX: G89.29 Other chronic pain (principal); M47.812 Spondylosis without myelopathy or radiculopathy, cervical region; I10 Essential (primary) hypertension; Z79.1 Long term (current) use of non-steroidal anti-inflammatories (NSAID); Z79.891 Long term (current) use of opiate analgesic; Z79.899 Other long term (current) drug therapy
CPT/HCPCS: 64490; 64491; 64492; J2250; J1100; 99152

== ENCOUNTER 2017-08-02 05:57 | Day surgery (SDC) | payer OTHER ==
[2017-07-31 09:29] VITALS: BMI 29.2
[2017-08-02] MEDS ORDERED: LACTATED RINGERS 1,000 ML IV ONE (06:54)
[2017-08-02] MEDS ORDERED: LIDOCAINE 1% 20 ML VIAL (10MG/ML) FOR IV START INTRADERMA ONE (06:54)
[2017-08-02 06:58] VITALS: TEMP 98
[2017-08-02 07:11] LABS: Glucose,Whole Blood 96 mg/dL (75-99)
--- NOTE | 2017-08-02 07:28 | P.PCN ---
Date of Procedure: 08/02/17 Surgeon: Ashish Garcia Description of Procedure: PREOPERATIVE DIAGNOSIS: Cervical Spondylosis with Facet Arthropathy.without myelopathy POSTOPERATIVE DIAGNOSIS: Cervical Spondylosis Facet Arthropathy. Without myelopathy PROCEDURES: Diagnostic , bilateral C2, bilateral C3, bilateral C4 medial branch blocks, with fluoroscopic guidance ANESTHESIA: Local with 1% lidocaine; IV sedation with Versed 3 mg. EBL: Minimal PROCEDURE INDICATION: The patient with neck pain secondary to cervical arthropathy unresponsive to more conservative treatments. He has undergone 2 previous occipital nerve blocks and received little benefit. She is undergone one previous diagnostic cervical medial branch nerve block. She reports that this was helpful in reducing of the daily headaches. She no longer experiences the symptoms are severe she previously did. PROCEDURE DESCRIPTION / TECHNIQUE: The patient was seen and identified in the preoperative area. Risks, benefits, complications, and alternatives were discussed with the patient, the patient agreed to proceed with the procedure and signed the consent. IV was started. Vital signs remained stable throughout the procedure. Patient was taken to the OR and time out was completed. The patient was placed in the prone position on the procedure table. A pillow was placed under the patients chest to increase the cervical interlaminar space. The cervical area was prepped and draped in the usual sterile fashion. Critical pause was taken. Vital signs were closely monitored during the procedure. Conscious sedation was used during the procedure to decrease patients anxiety. Using cross-table lateral fluoroscopy, the centroid of the trapezoid of right C2 was identified, marked, and localized with 1% lidocaine 1 ml at each level for skin and Sub Q infiltrations . Subsequently, a 22 G spinal needle was advanced guided by fluoroscopy to the centroid of the trapezoid . [place] tip position was confirmed at the centroid of the trapezoids anteroposterior fluoroscopy. Subsequently, 2 ml of preservative-free Bupivacaine 0.5% mixed with Dexamethasone 10 mg and half ml of the mixture was injected after negative aspiration for blood and CSF. This was then repeated at all the additional levels on both sides. COMPLICATIONS: No acute complications. COMMENTS: DISPOSITION / PLANS: The patient was placed in a supine position and transferred to the recovery area in a stable condition for observation and was discharged from the recovery room after meeting discharge criteria. Home discharge instructions given to the patient by the staff. The patient was reexamined prior to discharge. She can follow up for repeat of this procedure in 2-4 weeks. She should receive at least 50% benefit from this procedure to consider radiofrequency ablation.
[2017-08-02 07:46] VITALS: BP 118/80; PULSE 78; RESP 18
--- NOTE | 2017-08-02 07:53 | FL ---
EXAMINATION TYPE: FL guided pain mgmt statistic DATE OF EXAM: 08/02/2017 CLINICAL HISTORY: Neck pain. TECHNIQUE: Fluoroscopy. COMPARISON: None. FINDINGS: Fluoroscopic guidance was provided during pain relief procedure performed by anesthesia Dr . A total of 6 seconds of fluoroscopic time was utilized during the procedure and two spot images ar e acquired. Images acquired shows needle localization at several levels in the cervical spine. IMPRESSION: As Above.
[2017-08-02] MEDS ORDERED: IV FLUID CONTINUATION 1,000 ML IV ONE (07:55)
== END 2017-08-02 08:03 | disposition home or self-care (01) ==
LOC: ORPAIN 05:57
PROVIDERS: ATTEND Anesthesiology
DX: M47.812 Spondylosis without myelopathy or radiculopathy, cervical region (principal)
CPT/HCPCS: 64490; 64491; 64492; J2250; J1100; 99152

== ENCOUNTER → 2017-08-27 | Outpatient (CLI) | payer OTHER ==
[2017-08-27 13:59] VITALS: BP 121/82; PULSE 94; RESP 16
--- NOTE | 2017-08-27 14:30 | P.PN ---
Progress Note - Text Progress Note Date: 08/27/17 Patient returns for followup for chronic neck pain and headaches. The patient had cervical medial branch block for C2 and C3,and c4 bilaterally recently which gave her only 10% of pain relief. She failed to respond to occipital nerve block previously. Her most recent cervical spine MRI showed only very mild changes that does not explain her pain. Patient continues on [place] medications for pain with some relief. Patient denies adverse drug effects from medications. Today, pt denies new-onset weakness, bowel/bladder incontinence, or any other signs or symptoms of cauda equina syndrome. There are no signs of acute intoxication, and no indications of medication diversion or overuse. In addition to above, 13-point review of systems is also negative for chest pain , shortness of breath, changes in vision, changes in hearing, new onset weakness , abdominal pain, diarrhea, extreme fatigue, malaise, fever, skin changes, homicidal or suicidal ideation, or bowel or bladder incontinence. Vital Signs: Reviewed in EMR Gen: WDWN, AAOx3, NAD HEENT: NCAT, EOMI, hearing grossly normal Pulm: resp unlabored Neck: supple, trachea midline Neuro: CN II-XII grossly intact, muscle strength lower extremities PRESERVED Imaging: Reviewed in EMR Assessment: 1. cervical spondylosis 2. cervical myofascial pain 3. chronic headache, possibly cervicogenic Plan: 1. Explanation: Opioid and psychological risk scores were reviewed. Diagnoses , prognoses, and multiple treatment options including but not limited to physical therapy, interventional therapies, adjuvant medical therapies, narcotic medication therapies, and surgery were discussed with the patient and all questions were answered to the patient's satisfaction. 2. Opioid agreement: no opioids prescribed today 3. Counseling: The patient was counseled extensively on BLOOD PRESSURE, BODY MASS INDEX, EXERCISE. Specifically, the patient was instructed regarding the importance of BP control with headaches, weight control, and exercise in the context of both chronic pain and overall health. 4. Procedures: The patient has unremarkable cervical spine MRI and she does not take any procedures on the cervical spine at this point. 5. Consultations: I will refer the patient for physical therapy 6. Investigations: MRI cervical spine was reviewed with the patient 7. Medications: none prescribed 8. Disposition: The patient will be seen on an as-needed basis PQRS measures: 1-Patient's medications are documented in the chart. 2-Tobacco use is /negative 3-Patient has not had a pneumococcal vaccine. 4-Advanced care planning discussed, patient unable to give. 5-Opioid contract NOT signed with the patient. 6-Pain positive, follow-up visit or procedure scheduled 7-Patient's blood pressure measured and documented, and patient will follow up with the primary care due to hypertension. 8-Patient's weight was measured, and body mass index ABOVE the normal limits, and counseling was done. Patient instructed to follow up with PCP. 9-Patient WAS NOT identified as an unhealthy alcohol user.
== END | disposition home or self-care (01) ==
LOC: PNWHC3 13:15
PROVIDERS: ATTEND Anesthesiology
DX: G89.29 Other chronic pain (principal); M54.2 Cervicalgia; M47.812 Spondylosis without myelopathy or radiculopathy, cervical region; M79.1 Myalgia; R51 Headache; Z79.891 Long term (current) use of opiate analgesic
CPT/HCPCS: 99211

== ENCOUNTER → 2017-12-20 | Outpatient (CLI) | payer OTHER ==
--- NOTE | 2017-12-20 15:49 | XR ---
EXAMINATION TYPE: XR knee complete LT DATE OF EXAM: 12/20/2017 COMPARISON: None HISTORY: Slip, knee pain TECHNIQUE: Three-view left knee FINDINGS: There is narrowing of the medial compartment joint space. Medial lateral tibial plateau and medial and lateral femoral condylar spurring is present. Posterior patellar spurring is present. No joint effusion is evident. No acute fractures are evident. Follow-up exam can be performed 7-10 days from acute trauma for continued pain. IMPRESSION: 1. Moderate degenerative changes. 2. No acute osseous abnormality.
== END | disposition home or self-care (01) ==
LOC: RADXRMAIN 14:30
PROVIDERS: ATTEND Family Medicine
DX: M17.12 Unilateral primary osteoarthritis, left knee (principal)

== ENCOUNTER → 2018-05-20 | Outpatient (CLI) | payer BC, OTHER ==
--- NOTE | 2018-05-20 11:21 | MM ---
Reason for exam: clinical finding. Last mammogram was performed 2 years and 7 months ago. History: Patient has history of other cancer at age 11. Family history of breast cancer in paternal grandmother and breast cancer in paternal aunt. Took hormonal contraceptives for 4 years beginning at age 15. Physical Findings: Nurse did not find any significant physical abnormalities on exam. MG Diagnostic Mammo w CAD JANUARY Bilateral CC and MLO view(s) were taken. Prior study comparison: October 11, 2015, bilateral MG diagnostic mammo w CAD JANUARY. October 08, 2014, bilateral MG screening mammo w CAD. The breast tissue is heterogeneously dense. This may lower the sensitivity of mammography. No suspicious abnormality. These results were verbally communicated with the patient and result sheet given to the patient on 05/20/18. ASSESSMENT: Incomplete: need additional imaging evaluation, BI-RAD 0 RECOMMENDATION: Ultrasound of the left breast. (area of pain)
--- NOTE | 2018-05-20 11:22 | USB ---
Reason for exam: additional evaluation requested from abnormal screening. History: Patient has history of other cancer at age 11. Family history of breast cancer in paternal grandmother and breast cancer in paternal aunt. Took hormonal contraceptives for 4 years beginning at age 15. US Breast Limited LT Left limited breast ultrasound including focal area of concern, retroareolar and axilla demonstrates a 0.6 x 0.4 x 0.4cm oval, cystic lesion at 3 o'clock, duct ectasia at 6 o'clock and posterior nipple. These results were verbally communicated with the patient and result sheet given to the patient on 05/20/18. ASSESSMENT: Benign, BI-RAD 2 RECOMMENDATION: Routine screening mammogram of both breasts in 1 year.
== END ==
LOC: RADMAMWWP 06:59
PROVIDERS: ATTEND Obstetrics & Gynecology
DX: R92.8 Other abnormal and inconclusive findings on diagnostic imaging of breast (principal); N64.4 Mastodynia
CPT/HCPCS: 77066

== ENCOUNTER → 2019-07-29 | Outpatient (CLI) | payer BC ==
[2019-07-29 10:48] LABS: Prothrombin Time 10.3 sec (9.0-12.0)
== END | disposition home or self-care (01) ==
LOC: LABWHC1 09:58
PROVIDERS: ATTEND Family Medicine
DX: I10 Essential (primary) hypertension (principal); Z79.899 Other long term (current) drug therapy
CPT/HCPCS: 36415; 84443; 85610

== ENCOUNTER → 2020-03-26 | Outpatient (CLI) | payer BC ==
--- NOTE | 2020-03-26 08:24 | US ---
EXAMINATION TYPE: US abdomen complete DATE OF EXAM: 03/26/2020 COMPARISON: CLINICAL HISTORY: R10.9 abdmonial pain. Generalized abdomen pain EXAM MEASUREMENTS: Liver Length: 14.0 cm Gallbladder Wall: 0.3 cm CBD: 0.5 cm Spleen measures 8.7 cm. Right Kidney: 9.2 x 4.4 x 4.1 cm Left Kidney: 8.9 x 4.7 x 5.3 cm Pancreas: wnl Liver: There is mild fatty infiltration liver Gallbladder: wnl Evidence for sonographic Reveles's sign: neg CBD: wnl Spleen: wnl Right Kidney: No hydronephrosis or masses seen Left Kidney: No hydronephrosis or masses seen Upper IVC: not well visualized Abd Aorta: No AAA visualized IMPRESSION: 1. Mild fatty liver
== END | disposition home or self-care (01) ==
LOC: RADUSWWP 07:03
PROVIDERS: ATTEND Obstetrics & Gynecology
DX: K76.0 Fatty (change of) liver, not elsewhere classified (principal)
CPT/HCPCS: 76700

== ENCOUNTER → 2020-07-02 | Outpatient (CLI) | payer BC ==
[2020-07-02 19:28] LABS: HGB 13.9 g/dL (12.0-15.0); MCH 28.9 pg (27.0-32.0); MCHC 31.6 g/dL (32.0-37.0); MCV 91.5 fL (80.0-97.0); Mean Platelet Volume 10.4 fL (9.5-12.2); Platelet Count 312 X 10*3/uL (140-440); RBC 4.81 X 10*6/uL (4.10-5.20); RDW 13.2 % (11.5-14.5); WBC 6.58 X 10*3/uL (4.50-10.00)
[2020-07-02 21:47] LABS: Hemoglobin A1C 5.5 % (4.0-6.0)
[2020-07-02 21:48] LABS: African American GFR (CKD) 89.5 (60.0-200.0); Albumin 5.1 g/dL (3.80-4.90); Albumin/Globulin Ratio 2.22 (1.60-3.17); Anion Gap 10.1 mmol/L (4.00-12.00); BUN/Creat Ratio 21.11 Ratio (12.00-20.00); Calcium 10.2 mg/dL (8.7-10.3); Carbon Dioxide 26.9 mmol/L (21.6-31.8); Chol/HDL Ratio 3.89; Globulin 2.3 g/dL (1.6-3.3); LDL Cholesterol,Calculated 107.6 mg/dL (0.0-131.0); Non-African American GFR(CKD) 77.2 (60.0-200.0); Potassium 4.3 mmol/L (3.5-5.5); Total Bilirubin 0.4 mg/dL (0.3-1.2); Total Protein 7.4 g/dL (6.2-8.2); VLDL Calculation 54.4 mg/dL (5.00-40.00)
[2020-07-03 01:24] LABS: C-Peptide 3.81 ng/mL (0.81-3.85)
== END | disposition home or self-care (01) ==
LOC: LABWHC1 09:43
PROVIDERS: ATTEND Family Medicine
DX: M19.90 Unspecified osteoarthritis, unspecified site (principal); R53.83 Other fatigue
CPT/HCPCS: 36415; 80053; 80061; 82306; 83036; 84443; 84681; 85027

== ENCOUNTER 2020-09-29 12:41 | Emergency (ER) | payer BC ==
[2020-09-29 12:51] VITALS: TEMP 98
[2020-09-29] MEDS ORDERED: SODIUM CHLORIDE 0.9% 500 ML 500 ML IV ONE (13:06)
[2020-09-29] MEDS ORDERED: SODIUM CHLORIDE 0.9% 1,000 ML IV ONE (13:06)
[2020-09-29] MEDS ORDERED: ONDANSETRON 4 MG/2 ML VIAL IVP STA (13:07)
--- NOTE | 2020-09-29 13:14 | ED ---
General Adult HPI - General Chief complaint: Recheck/Abnormal Lab/Rx Stated complaint: dehydration Time Seen by Provider: 09/29/20 12:50 Source: patient, RN notes reviewed, old records reviewed Mode of arrival: ambulatory Limitations: no limitations - History of Present Illness Initial comments: This is a 45-year-old female who presents to the emergency department complaining of fatigue nausea and vomiting. Patient states she was outside working in the hot heat for about 4 hours which she has not used 2 and when she was done she felt lightheaded extremely weak and vomited. Patient states she did not drink much water today at all. Patient denies any fever or chills patient denies any chest pain difficult breathing shortness of breath. Patient denies any abdominal pain patient denies any back pain. Patient denies any dysuria hematuria urinary frequency. - Related Data Home Medications Medication Instructions Recorded Confirmed Butalb/APAP/Caff 50-325-40Mg 1 tab PO Q4H PRN 11/03/16 08/27/17 [Fioricet 50-325-40] HYDROcodone/APAP 7.5-325MG [[place] 1 tab PO TID PRN 11/03/16 08/27/17 7.5-325] Spironolactone 100 mg PO DAILY 11/03/16 08/27/17 Topiramate [Trokendi Xr] 100 mg PO QAM 11/03/16 08/27/17 valACYclovir [Valtrex] 500 mg PO HS 11/03/16 08/27/17 Cyclobenzaprine [Flexeril] 10 mg PO TID 01/02/17 08/27/17 amLODIPine [Norvasc] 10 mg PO DAILY 03/07/17 08/27/17 Allergies Allergy/AdvReac Type Severity Reaction Status Date / Time No Known Allergies Allergy Verified 09/29/20 12:51 Review of Systems ROS Statement: Those systems with pertinent positive or pertinent negative responses have been documented in the HPI. ROS Other: All systems not noted in ROS Statement are negative. Past Medical History Past Medical History: Hypertension, Neurologic Disorder Additional Past Medical History / Comment(s): migraines,kidney stones, History of Any Multi-Drug Resistant Organisms: None Reported Past Surgical History: Appendectomy, Hysterectomy, Orthopedic Surgery Additional Past Surgical History / Comment(s): cyst removed from ovary, zenaida knee arthroscopy, PAIN CL[facility]IC Past Anesthesia/Blood Transfusion Reactions: No Reported Reaction Additional Past Anesthesia/Blood Transfusion Reaction / Comment(s): no hx blood transfusion Past Psychological History: Anxiety, Depression Smoking Status: Never smoker Past Alcohol Use History: None Reported Past Drug Use History: None Reported - Past Family History Mother Family Medical History: Cancer Father Family Medical History: Hypertension General Exam - General Exam Comments Initial Comments: GENERAL: Patient is well-developed and well-nourished. Patient is nontoxic and well- hydrated and is in mild distress. ENT: Neck is soft and supple. No significant lymphadenopathy is noted. Oropharynx is clear. Moist mucous membranes. Neck has full range of motion without eliciting any pain. EYES: The sclera were anicteric and conjunctiva were pink and moist. Extraocular movements were intact and pupils were equal round and reactive to light. Eyelids were unremarkable. PULMONARY: Unlabored respirations. Good breath sounds bilaterally. No audible rales rhonchi or wheezing was noted. CARDIOVASCULAR: There is a regular rate and rhythm without any murmurs gallops or rubs. ABDOMEN: Soft and nontender with normal bowel sounds. SKIN: Skin is clear with no lesions or rashes and otherwise unremarkable. NEUROLOGIC: Patient is alert and oriented x3. Cranial nerves II through XII are grossly intact. Motor and sensory are also intact. Normal speech, volume and content. Symmetrical smile. MUSCULOSKELETAL: Normal extremities with adequate strength and full range of motion. No lower extremity swelling or edema. No calf tenderness. LYMPHATICS: No significant lymphadenopathy is noted PSYCHIATRIC: Normal psychiatric evaluation. Limitations: no limitations Course Vital Signs 09/29/20 09/29/20 12:49 14:50 Temperature 98.0 F Pulse Rate 102 H 75 Respiratory 16 18 Rate Blood Pressure 137/83 133/84 O2 Sat by Pulse 97 100 Oximetry Medical Decision Making - Medical Decision Making Patient's EKG shows normal sinus rhythm at 87 bpm W[place] interval 262 QRS is 84 QT interval 374 QTC is 450. Patient's EKG shows no ST segment elevation or depression. I went back and reevaluate the patient she was feeling considerably better and wanted to be discharged home. Patient received a liter of fluids in the emergency department and Zofran. - Lab Data Result diagrams: 09/29/20 13:34 09/29/20 13:34 Lab Results 09/29/20 09/29/20 09/29/20 Range/Units 13:34 13:34 13:39 WBC 5.8 (3.8-10.6) k/uL RBC 4.43 (3.80-5.40) m/uL Hgb 13.3 (11.4-16.0) gm/dL Hct 38.0 (34.0-46.0) % MCV 85.9 (80.0-100.0) fL MCH 29.9 (25.0-35.0) pg MCHC 34.8 (31.0-37.0) g/dL RDW 13.6 (11.5-15.5) % Plt Count 229 (150-450) k/uL MPV 7.1 Neutrophils % 60 % Lymphocytes % 28 % Monocytes % 7 % Eosinophils % 3 % Basophils % 1 % Neutrophils # 3.5 (1.3-7.7) k/uL Lymphocytes # 1.6 (1.0-4.8) k/uL Monocytes # 0.4 (0-1.0) k/uL Eosinophils # 0.1 (0-0.7) k/uL Basophils # 0.0 (0-0.2) k/uL Sodium 143 (137-145) mmol/L Potassium 4.1 (3.5-5.1) mmol/L Chloride 106 (98-107) mmol/L Carbon Dioxide 26 (22-30) mmol/L Anion Gap 11 mmol/L BUN 16 (7-17) mg/dL Creatinine 1.00 (0.52-1.04) mg/dL Est GFR (CKD-EPI)AfAm 79 (>60 ml/min/1.73 sqM) Est GFR (CKD-EPI)NonAf 68 (>60 ml/min/1.73 sqM) Glucose 91 (74-99) mg/dL Calcium 10.0 (8.4-10.2) mg/dL Magnesium 2.0 (1.6-2.3) mg/dL Total Bilirubin 0.5 (0.2-1.3) mg/dL AST 25 (14-36) U/L ALT 27 (4-34) U/L Alkaline Phosphatase 100 (38-126) U/L Total Protein 7.5 (6.3-8.2) g/dL Albumin 4.7 (3.5-5.0) g/dL Urine Color Yellow Urine Appearance Cloudy H (Clear) Urine pH 5.5 (5.0-8.0) Ur Specific [place] 1.020 (1.001-1.035) Urine Protein Negative (Negative) Urine Glucose (UA) Negative (Negative) Urine Ketones Negative (Negative) Urine Blood Negative (Negative) Urine Nitrite Negative (Negative) Urine Bilirubin Negative (Negative) Urine Urobilinogen <2.0 (<2.0) mg/dL Ur Leukocyte Esterase Negative (Negative) Urine RBC 1 (0-5) /hpf Urine WBC 2 (0-5) /hpf Ur Squamous Epith Cells 10 H (0-4) /hpf Urine Bacteria Many H (None) /hpf Urine Mucus Occasional H (None) /hpf Disposition Clinical Impression: Heat exhaustion Disposition: HOME SELF-CARE Condition: Good Instructions (If sedation given, give patient instructions): Heat Exhaustion (ED) Is patient prescribed a controlled substance at d/c from ED?: No Referrals: Ji Nance MD [Primary Care Provider] - 1-2 days Time of Disposition: 15:24
[2020-09-29 13:55] LABS: Basophils % (A) 1 %; Eosinophils # (A) 0.1 k/uL (0-0.7); Eosinophils % (A) 3 %; HGB 13.3 gm/dL (11.4-16.0); Lymphocytes # (A) 1.6 k/uL (1.0-4.8); Lymphocytes % (A) 28 %; MCH 29.9 pg (25.0-35.0); MCHC 34.8 g/dL (31.0-37.0); MCV 85.9 fL (80.0-100.0); Mean Platelet Volume 7.1; Monocytes # (A) 0.4 k/uL (0-1.0); Monocytes % (A) 7 %; Neutrophils # (A) 3.5 k/uL (1.3-7.7); Neutrophils % (A) 60 %; Platelet Count 229 k/uL (150-450); RBC 4.43 m/uL (3.80-5.40); RDW 13.6 % (11.5-15.5); WBC 5.8 k/uL (3.8-10.6)
[2020-09-29 14:05] LABS: Albumin 4.7 g/dL (3.5-5.0); Potassium 4.1 mmol/L (3.5-5.1); Total Bilirubin 0.5 mg/dL (0.2-1.3); Total Protein 7.5 g/dL (6.3-8.2)
[2020-09-29 14:39] LABS: Appearance,Urine Cloudy (Clear); Bacteria,Urine Many /hpf; Bilirubin,Urine Negative (Negative); Blood,Urine Negative (Negative); Color,Urine Yellow; Glucose,Urine (UA) Negative (Negative); Ketones,Urine Negative (Negative); Leukocyte Esterase,Urine Negative (Negative); Mucus,Urine Occasional /hpf; Nitrite,Urine Negative (Negative); PH, Urine 5.5 (5.0-8.0); Protein,Urine Negative (Negative); RBC,Urine 1 /hpf (0-5); Squamous Epithelial Cell,Urine 10 /hpf (0-4); Urobilinogen,Urine <2.0 mg/dL (<2.0); WBC,Urine 2 /hpf (0-5)
[2020-09-29 14:50] VITALS: BP 133/84; PULSE 75; RESP 18
== END 2020-09-29 15:38 | disposition home or self-care (01) ==
LOC: EC 12:41
DX: T67.5XXA Heat exhaustion, unspecified, initial encounter (principal); I10 Essential (primary) hypertension; F32.9 Major depressive disorder, single episode, unspecified; Z90.710 Acquired absence of both cervix and uterus; Z90.89 Acquired absence of other organs; X58.XXXA Exposure to other specified factors, initial encounter; Y99.0 Civilian activity done for income or pay
CPT/HCPCS: 36415; 93005; 80053; 83735; 85025; 81001; 99284; 96374; 96361; J2405

== ENCOUNTER → 2020-11-15 | Outpatient (CLI) | payer BC ==
--- NOTE | 2020-11-17 11:24 | MM ---
Reason for exam: screening (asymptomatic). Last mammogram was performed 2 years and 6 months ago. History: Patient is postmenopausal and has history of other cancer at age 11. Family history of breast cancer in paternal grandmother and breast cancer in paternal aunt. Took hormonal contraceptives for 4 years beginning at age 15. Physical Findings: A clinical breast exam by your physician is recommended on an annual basis and results should be correlated with mammographic findings. MG 3D Screening Mammo W/Cad Bilateral CC and MLO view(s) were taken. Prior study comparison: May 20, 2018, bilateral MG diagnostic mammo w CAD JANUARY. October 11, 2015, bilateral MG diagnostic mammo w CAD JANUARY. The breast tissue is heterogeneously dense. This may lower the sensitivity of mammography. No significant changes when compared with prior studies. ASSESSMENT: Benign, BI-RAD 2 RECOMMENDATION: Routine screening mammogram of both breasts in 1 year.
== END | disposition home or self-care (01) ==
LOC: RADMAMWWP 12:48
PROVIDERS: ATTEND Obstetrics & Gynecology
DX: Z12.31 Encounter for screening mammogram for malignant neoplasm of breast (principal); Z78.0 Asymptomatic menopausal state; Z79.3 Long term (current) use of hormonal contraceptives; Z85.9 Personal history of malignant neoplasm, unspecified; Z80.3 Family history of malignant neoplasm of breast
CPT/HCPCS: 77063; 77067

== ENCOUNTER → 2023-09-19 | Outpatient (CLI) | payer BC ==
--- NOTE | 2023-09-19 12:47 | XR ---
EXAMINATION TYPE: XR lumbosacral spine min 4V DATE OF EXAM: 09/19/2023 12:35 PM CLINICAL INDICATION:Female, 48 years old with history of R52 PAIN LUMBAGO; [facility] COMPARISON: 01/11/2011 TECHNIQUE: XR lumbosacral spine min 4V - Frontal, lateral , bilateral oblique and coned in L5-S1 late ral views of the spine. FINDINGS: No evidence of any acute osseous pathology. No evidence of loss of vertebral body height i s seen. There is normal alignment of the lumbar vertebral bodies. Mild scattered disc space narrowing . Multilevel marginal osteophyte formation throughout the visualized spine. There is facet joint arth ropathy throughout the spine. Scattered at least mild neural foraminal stenosis. IMPRESSION: 1. No acute fracture. 2. Mild multilevel disc degeneration.
== END | disposition home or self-care (01) ==
LOC: RADXRMAIN 12:12
PROVIDERS: ATTEND Family Medicine
DX: M51.36 Other intervertebral disc degeneration, lumbar region (principal)
CPT/HCPCS: 72110

== ENCOUNTER → 2024-06-06 | Outpatient (CLI) | payer BC ==
--- NOTE | 2024-06-06 16:28 | MR ---
EXAMINATION TYPE: MR lumbar spine wo/w con DATE OF EXAM: 06/06/2024 3:48 PM COMPARISON: Lumbosacral spine radiograph 09/19/2023, MR C-spine/L spine 12/28/2014 CLINICAL INDICATION: Female, 48 years old with history of M79.18 MYALGIA, OTHER SITE, Lots of lower b ack pain-unable to move IV Contrast: 10ml cc Gadobutrol (None if empty) TECHNIQUE: Multiplanar, multisequence images of the lumbar spine were acquired without and with 10ml mL intraven ous Gadobutrol gadolinium contrast. L1-L2: Normal disc appearance without desiccation. No herniation, protrusion or disc bulging. No ca nal stenosis is present. Foramina are patent bilaterally. L2-L3: Normal disc appearance without desiccation. No herniation, protrusion or disc bulging. No ca nal stenosis is present. Foramina are patent bilaterally. L3-L4: Normal disc appearance without desiccation. No herniation, protrusion or disc bulging. No ca nal stenosis is present. Foramina are patent bilaterally. L4-L5: Minimal disc desiccation. No herniation, protrusion or disc bulging. No canal stenosis is pre sent. Foramina are patent bilaterally. L5-S1: Disc desiccation. Central disc protrusion superimposed upon a broad-based disc bulge with mild effacement of the anterior thecal sac and close approximation of the exiting bilateral L5 nerve root s. Bilateral facet arthropathy. Mild left and minimal right neural foraminal stenosis. Lumbar segments are intact. Type II Modic changes involving the superior endplate of the L2 and L4 ve rtebral bodies. No paraspinal masses are identified. Conus medullaris has a normal appearance. No ab normal contrast enhancement. IMPRESSION: L5-S1 Central disc protrusion superimposed upon a broad-based disc bulge with mild central canal sten osis and close approximation of the exiting bilateral L5 nerve roots. No abnormal contrast enhancemen t. Bilateral facet arthropathy at this level with minimal right and mild left neural foraminal stenos is. [facility], , 06/06/2024 4:25 PM
== END | disposition home or self-care (01) ==
LOC: RADMRIMAIN 14:48
PROVIDERS: ATTEND Family Medicine
DX: M51.17 Intervertebral disc disorders with radiculopathy, lumbosacral region (principal); M47.26 Other spondylosis with radiculopathy, lumbar region; M99.73 Connective tissue and disc stenosis of intervertebral foramina of lumbar region; M79.18 Myalgia, other site; M48.061 Spinal stenosis, lumbar region without neurogenic claudication
CPT/HCPCS: 72158; A9585

== ENCOUNTER → 2024-06-30 | Outpatient (CLI) | payer BC ==
--- NOTE | 2024-06-30 16:49 | CT ---
EXAMINATION TYPE: CT abdomen pelvis w con CT DLP: 1717.3 mGycm, Automated exposure control for dose reduction was used. DATE OF EXAM: 06/30/2024 4:39 PM COMPARISON: Abdominal ultrasound 03/26/2020 CLINICAL INDICATION:Female, 48 years old with history of N39.0 URINARY TRACT INFECTION, SITE NOT SPEC IFIED; Urinary tract infection, site not specified TECHNIQUE: Standard CT of the abdomen and pelvis following the administration of 100 cc of Isovue 3 00 IV contrast material and oral contrast. Coronal and sagittal reformats were performed. FINDINGS: LOWER CHEST: Unremarkable ABDOMEN LIVER: Unremarkable GALLBLADDER AND BILE DUCTS: Unremarkable. PANCREAS: Unremarkable. SPLEEN: Unremarkable. ADRENAL GLANDS: Unremarkable. KIDNEYS AND URETERS: No evidence of hydronephrosis or renal calculus. The kidneys enhance symmetrical ly. Contrast is demonstrated within both collecting systems and proximal ureters on delayed phase. In ferior right renal 1.4 cm cyst. No follow-up recommended. PELVIS BLADDER: Underdistended but grossly unremarkable. No surrounding fat stranding. REPRODUCTIVE: The uterus is surgically absent. ABDOMEN & PELVIS STOMACH AND BOWEL: Small hiatal hernia, duodenum is unremarkable. No evidence of bowel obstruction. S everal scattered distal colonic diverticula without evidence for acute diverticulitis. Enteric contra st reaches the ascending colon. No focal bowel wall thickening or surrounding inflammatory changes. T he appendix is not identified. PERITONEUM: No evidence of pneumoperitoneum or free fluid. VASCULATURE: No evidence of aortic aneurysm. MUSCULOSKELETAL: No acute osseous abnormalities. Minimal multilevel degenerative disc disease. Most p ronounced at L5-S1 with vacuum disc disease and broad-based disc bulge. LYMPH NODES: No gross evidence for lymphadenopathy. SOFT TISSUE/ABDOMINAL WALL: Unremarkable IMPRESSION: 1. No CT evidence for acute abdominal/pelvic process. 2. Colonic diverticulosis without evidence for acute diverticulitis. [facility], , 06/30/2024 4:46 PM
== END | disposition home or self-care (01) ==
LOC: RADCTMAIN 14:49
PROVIDERS: ATTEND Family Medicine
DX: K57.30 Diverticulosis of large intestine without perforation or abscess without bleeding (principal); N39.0 Urinary tract infection, site not specified
CPT/HCPCS: 74177; Q9967

== ENCOUNTER → 2024-09-29 | Outpatient (CLI) | payer BC, OTHER ==
--- NOTE | 2024-09-29 11:33 | XR ---
EXAMINATION TYPE: XR ankle complete 3 views LT, XR foot complete 3 views LT DATE OF EXAM: 09/29/2024 11:15 AM COMPARISON: None CLINICAL INDICATION: Female, 49 years old with history of M25.572 M79.672 Left ankle and foot pain; P HH, pain FINDINGS: Ankle: Ankle mortise is congruent with preservation of the distal tibiofibular overlap. Talar dome is intact . There may be some mild soft tissue swelling about the ankle. No acute fracture, subluxation, disloc ation is seen. Foot: Moderate-sized plantar heel spur. Tiny os peroneum. Small 9 mm bone island proximal shaft first metat arsal. Some dorsal soft tissue swelling is noted. No acute fracture, subluxation, dislocation. IMPRESSION: Ankle and foot: Some soft tissue swelling about the ankle and also along the dorsum of the foot. No u nderlying acute osseous abnormality seen. Moderate sized plantar heel spur. [facility], , 09/29/2024 11:31 AM
== END | disposition home or self-care (01) ==
LOC: RADXRMAIN 10:41
PROVIDERS: ATTEND Family Medicine
DX: M77.32 Calcaneal spur, left foot (principal); M25.572 Pain in left ankle and joints of left foot; M79.672 Pain in left foot